=== PATIENT | female | born 1970 | race Caucasian/White ===

== ENCOUNTER 2018-08-06 07:55 | Emergency (ER) | payer BC ==
[2018-08-06] MEDS ORDERED: SODIUM CHLORIDE 0.9% 500 ML IV STA (07:57)
[2018-08-06] MEDS ORDERED: SODIUM CHLORIDE 0.9% 1,000 ML IV STA (07:57)
[2018-08-06 08:03] VITALS: TEMP 97.8
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
--- NOTE | 2018-08-06 08:28 | XR ---
EXAMINATION TYPE: XR chest 2V DATE OF EXAM: 08/06/2018 COMPARISON: None HISTORY: 47-year-old female with cough TECHNIQUE: Frontal and lateral views FINDINGS: The cardiomediastinal silhouette, aorta, and pulmonary vasculature are within normal limits. Lungs an d pleural spaces are clear. IMPRESSION: No acute cardiopulmonary process.
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
[2018-08-06 09:10] LABS: Basophils % (A) 1 %; Eosinophils # (A) 0.3 k/uL (0-0.7); Eosinophils % (A) 4 %; HCT 40.2 % (34.0-46.0); HGB 12.8 gm/dL (11.4-16.0); Lymphocytes % (A) 23 %; MCH 30.4 pg (25.0-35.0); MCHC 31.8 g/dL (31.0-37.0); MCV 95.7 fL (80.0-100.0); Mean Platelet Volume 6.3; Monocytes # (A) 0.3 k/uL (0-1.0); Monocytes % (A) 3 %; Neutrophils # (A) 6.2 k/uL (1.3-7.7); Neutrophils % (A) 69 %; Platelet Count 336 k/uL (150-450); RDW 13.3 % (11.5-15.5); WBC 8.9 k/uL (3.8-10.6)
[2018-08-06 09:14] LABS: ALT 19 U/L (9-52); AST 19 U/L (14-36); Alcohol <10 mg/dL; Alkaline Phosphatase 72 U/L (38-126); Anion Gap 9 mmol/L; Blood Urea Nitrogen 13 mg/dL (7-17); Calcium 9.4 mg/dL (8.4-10.2); Carbon Dioxide 23 mmol/L (22-30); Chloride 110 mmol/L (98-107); Glucose 89 mg/dL (74-99); Magnesium 1.9 mg/dL (1.6-2.3); Potassium 3.9 mmol/L (3.5-5.1); Sodium 142 mmol/L (137-145); Total Bilirubin 0.3 mg/dL (0.2-1.3); Total Protein 6.9 g/dL (6.3-8.2)
[2018-08-06 09:28] LABS: Creatine Kinase 58 U/L (30-135)
[2018-08-06 09:40] LABS: Troponin I <0.012 ng/mL (0.000-0.034)
[2018-08-06 09:54] LABS: Appearance,Urine Clear (Clear); Bilirubin,Urine Negative (Negative); Blood,Urine Negative (Negative); Color,Urine Yellow; Glucose,Urine (UA) Negative (Negative); Ketones,Urine Negative (Negative); Leukocyte Esterase,Urine Negative (Negative); Nitrite,Urine Negative (Negative); Protein,Urine Trace (Negative); Specific Gravity,Urine 1.017 (1.001-1.035); Urobilinogen,Urine <2.0 mg/dL (<2.0)
[2018-08-06 10:04] LABS: Amphetamine Screen,Urine Not Detected (NotDetected); Barbiturate Screen,Urine Not Detected (NotDetected); Benzodiazepines Screen,Urine Not Detected (NotDetected); Cocaine Screen,Urine Not Detected (NotDetected); Methadone Screen, Urine Not Detected (NotDetected); Opiate Screen,Urine Not Detected (NotDetected); Oxycodone Screen, Urine Not Detected (NotDetected); Phencyclidine Screen,Urine Not Detected (NotDetected); Tricyclic Antidepressant,Urine Not Detected (NotDetected); Urn Cannabinoid Scrn Detected (NotDetected)
[2018-08-06 10:46] VITALS: RESP 18
[2018-08-06 11:07] VITALS: BP 101/64; PULSE 54
== END 2018-08-06 11:20 | disposition home or self-care (01) ==
LOC: EC 07:55
DX: R56.9 Unspecified convulsions (principal); R40.2412 Glasgow coma scale score 13-15, at arrival to emergency department; Z91.041 Radiographic dye allergy status
CPT/HCPCS: 36415; 70450; 71046; 80053; 80306; 80320; 81003; 82550; 82553; 83735; 84484; 85025; 85379; 93005; 96360; 96361; 99285

== ENCOUNTER 2019-01-01 12:57 | Emergency (ER) | payer BC ==
[2019-01-01] MEDS ORDERED: ONDANSETRON 4 MG/2 ML VIAL IVP STA (13:49)
[2019-01-01] MEDS ORDERED: SODIUM CHLORIDE 0.9% 1,000 ML IV STA (13:49)
[2019-01-01] MEDS ORDERED: MORPHINE SULFATE 4 MG/ML SYRINGE IV STA (13:49)
[2019-01-01] MEDS ORDERED: SODIUM CHLORIDE 0.9% 1,000 ML IV SCH (14:00)
--- NOTE | 2019-01-01 14:19 | ED ---
Abdominal Pain HPI - General Source: patient, RN notes reviewed, old records reviewed Mode of arrival: ambulatory Limitations: no limitations <Danielle Quinones - Last Filed: 01/01/19 19:21> <Josue Mullins - Last Filed: 01/01/19 19:45> - General Chief Complaint: Abdominal Pain Stated Complaint: vomiting, flank pain Time Seen by Provider: 01/01/19 13:20 - History of Present Illness Initial Comments: Patient is a 48-year-old female presents emergency department today for acute nausea and vomiting and lower back pain. She reports that her kidneys are hurting. Patient states that she had a pacemaker placed 2 weeks ago due to syncopal episodes. She has history of seizures. She has been maintaining her medications. She states that she has lower abdominal cramping and complains of severe abdominal pain. She's had multiple episodes of vomiting. Patient states that she had a pacemaker placed 2 weeks ago Ephraim Pereira. She does complain of some chest pain as well as this time. She reports the chest pain started when she arrived to the emergency department. (Danielle Quinones) - Related Data Home Medications Medication Instructions Recorded Confirmed Magnesium Oxide [Mag-Ox] 250 mg PO Q48H 08/06/18 01/01/19 Lacosamide [Vimpat] 150 mg PO BID 01/01/19 01/01/19 Allergies Allergy/AdvReac Type Severity Reaction Status Date / Time Iodinated Contrast- Oral and Allergy Unknown Verified 01/01/19 14:29 IV Dye Review of Systems ROS Other: All systems not noted in ROS Statement are negative. <Danielle Quinones - Last Filed: 01/01/19 19:21> ROS Other: All systems not noted in ROS Statement are negative. <Josue Mullins - Last Filed: 01/01/19 19:45> ROS Statement: Those systems with pertinent positive or pertinent negative responses have been documented in the HPI. Past Medical History Past Medical History: Seizure Disorder Additional Past Medical History / Comment(s): pacer placed for patt arrythmias History of Any Multi-Drug Resistant Organisms: None Reported Past Surgical History: Orthopedic Surgery, Pacemaker Past Psychological History: No Psychological Hx Reported Smoking Status: Current some day smoker Past Alcohol Use History: None Reported Past Drug Use History: None Reported <Danielle Quinones - Last Filed: 01/01/19 19:21> General Exam Limitations: no limitations General appearance: alert, in no apparent distress Head exam: Present: atraumatic, normocephalic, normal inspection Eye exam: Present: normal appearance, PERRL, EOMI. Absent: scleral icterus, conjunctival injection, periorbital swelling ENT exam: Present: normal exam, mucous membranes moist Neck exam: Present: normal inspection. Absent: tenderness, meningismus, lymphadenopathy Respiratory exam: Present: normal lung sounds bilaterally. Absent: respiratory distress, wheezes, rales, rhonchi, stridor Cardiovascular Exam: Present: regular rate, normal rhythm, normal heart sounds. Absent: systolic murmur, diastolic murmur, rubs, gallop, clicks GI/Abdominal exam: Present: soft, tenderness (epigastric ), normal bowel sounds , other (bilateral CVA ). Absent: distended, guarding, rebound, rigid Extremities exam: Present: normal inspection, full ROM, normal capillary refill. Absent: tenderness, pedal edema, joint swelling, calf tenderness Back exam: Present: normal inspection Neurological exam: Present: alert, oriented X3, CN II-XII intact <Danielle Quinones - Last Filed: 01/01/19 19:21> <Josue Mullins - Last Filed: 01/01/19 19:45> - General Exam Comments Initial Comments: 48-year-old female. Alert and oriented 3. Patient appears in moderate discomfort. (Danielle Quinones) Course <Danielle Quinones - Last Filed: 01/01/19 19:21> <Josue Mullins - Last Filed: 01/01/19 19:45> Vital Signs 01/01/19 01/01/19 01/01/19 13:08 15:15 15:30 Temperature 97.4 F L Pulse Rate 62 60 60 Respiratory 20 18 18 Rate Blood Pressure 158/82 117/82 117/82 O2 Sat by Pulse 98 98 100 Oximetry 01/01/19 01/01/19 01/01/19 16:00 16:30 17:00 Temperature Pulse Rate 76 64 Respiratory 19 17 14 Rate Blood Pressure 132/93 109/71 116/75 O2 Sat by Pulse 96 100 99 Oximetry 01/01/19 17:30 Temperature Pulse Rate 60 Respiratory 18 Rate Blood Pressure 101/68 O2 Sat by Pulse 100 Oximetry - Reevaluation(s) Reevaluation #1: 01/01/19 19:21 Patient was napping. Heart rate was between 30 and 45 bpm. When Patient awoke her heart rate returned to 60-70 bpm. 01/01/19 19:21 (Danielle Quinones) Reevaluation #2: 01/01/19 19:44 PA supervision: I did personally evaluate this case with the physician assistant manager/embalmer. Is questionable pacemaker integrity. Also CAT scan findings of possible lymphoma. Due to the recent pacemaker insertion and questioned the patient will be transferred back to the initiating facility [facility]. I do agree with the assessment and plan. (Josue Mullins) Medical Decision Making - Lab Data Result diagrams: 01/01/19 14:15 01/01/19 14:15 - Radiology Data Radiology results: report reviewed <Danielle Quinones - Last Filed: 01/01/19 19:21> - Lab Data Result diagrams: 01/01/19 14:15 01/01/19 14:15 <Josue Mullins - Last Filed: 01/01/19 19:45> - Medical Decision Making Patient is a 48-year-old female presents emergency Department today with complaints of chest discomfort as well as acute nausea and vomiting and back pain. She arrived to emergency department in significant distress. Patient was given 8 milligrams of IV morphine in total, and IV fluids. Patient was eventually able to urinate and had a significant amount of red blood cells in her urine. Her EKG was completed and shows a ventricular paced rhythm. While Patient was in the emergency department she was sleeping. Her heart rate went to 30 bpm at that time. When Patient was awoken her heart rate increased to the 60 bpm. Patient states that she was feeling much better after the IV fluids and pain medicine. Her computed tomography scan did show some evidence of left ureter and renal pelvis hydronephrosis likely from kidney stone. Patient computed tomography scan also showed enlarged lymph nodes concern for lymphoma. She was informed of all these results. Patient was reevaluated multiple times. When she would sleep, her heart rate would continue to do go into the 30s to 40s. Concerned with patient's recent pacemaker placement that this is malfunctioning. I discussed the case with Dr. Mullins. Patient agrees to be transferred back to [facility] where she had the pacemaker placed by Dr. Rouse. I do believe the patient's kidney stone is now all within the bladder and she is pain-free, resting comfortably in bed. She complains of no pain at 7:35 PM. I discussed the case with accepting ER physician Dr. Burroughs. (Danielle Quinones) - Lab Data Lab Results 01/01/19 01/01/19 01/01/19 Range/Units 14:15 14:15 14:15 WBC 14.7 H (3.8-10.6) k/uL RBC 4.67 (3.80-5.40) m/uL Hgb 14.1 (11.4-16.0) gm/dL Hct 43.0 (34.0-46.0) % MCV 92.1 (80.0-100.0) fL MCH 30.3 (25.0-35.0) pg MCHC 32.9 (31.0-37.0) g/dL RDW 13.6 (11.5-15.5) % Plt Count 393 (150-450) k/uL Neutrophils % 76 % Lymphocytes % 17 % Monocytes % 3 % Eosinophils % 3 % Basophils % 0 % Neutrophils # 11.3 H (1.3-7.7) k/uL Lymphocytes # 2.5 (1.0-4.8) k/uL Monocytes # 0.5 (0-1.0) k/uL Eosinophils # 0.4 (0-0.7) k/uL Basophils # 0.0 (0-0.2) k/uL PT (9.0-12.0) sec INR (<1.2) APTT (22.0-30.0) sec Sodium 138 (137-145) mmol/L Potassium 3.9 (3.5-5.1) mmol/L Chloride 109 H (98-107) mmol/L Carbon Dioxide 20 L (22-30) mmol/L Anion Gap 9 mmol/L BUN 16 (7-17) mg/dL Creatinine 0.69 (0.52-1.04) mg/dL Est GFR (CKD-EPI)AfAm >90 (>60 ml/min/1.73 sqM) Est GFR (CKD-EPI)NonAf >90 (>60 ml/min/1.73 sqM) Glucose 130 H (74-99) mg/dL Lactic Ac Sepsis Rflx Plasma Lactic Acid Bishnu 2.4 H* (0.7-2.0) mmol/L Calcium 9.9 (8.4-10.2) mg/dL Total Bilirubin 0.6 (0.2-1.3) mg/dL AST 19 (14-36) U/L ALT 17 (9-52) U/L Alkaline Phosphatase 97 (38-126) U/L Troponin I (0.000-0.034) ng/mL Total Protein 7.7 (6.3-8.2) g/dL Albumin 4.5 (3.5-5.0) g/dL Amylase 72 (30-110) U/L Lipase 125 (23-300) U/L Urine Color Urine Appearance (Clear) Urine pH (5.0-8.0) Ur Specific [place] (1.001-1.035) Urine Protein (Negative) Urine Glucose (UA) (Negative) Urine Ketones (Negative) Urine Blood (Negative) Urine Nitrite (Negative) Urine Bilirubin (Negative) Urine Urobilinogen (<2.0) mg/dL Ur Leukocyte Esterase (Negative) Urine RBC (0-5) /hpf Urine WBC (0-5) /hpf Urine Bacteria (None) /hpf Urine Mucus (None) /hpf 01/01/19 01/01/19 01/01/19 Range/Units 14:15 14:15 14:57 WBC (3.8-10.6) k/uL RBC (3.80-5.40) m/uL Hgb (11.4-16.0) gm/dL Hct (34.0-46.0) % MCV (80.0-100.0) fL MCH (25.0-35.0) pg MCHC (31.0-37.0) g/dL RDW (11.5-15.5) % Plt Count (150-450) k/uL Neutrophils % % Lymphocytes % % Monocytes % % Eosinophils % % Basophils % % Neutrophils # (1.3-7.7) k/uL Lymphocytes # (1.0-4.8) k/uL Monocytes # (0-1.0) k/uL Eosinophils # (0-0.7) k/uL Basophils # (0-0.2) k/uL PT 10.2 (9.0-12.0) sec INR 0.9 (<1.2) APTT 26.6 (22.0-30.0) sec Sodium (137-145) mmol/L Potassium (3.5-5.1) mmol/L Chloride (98-107) mmol/L Carbon Dioxide (22-30) mmol/L Anion Gap mmol/L BUN (7-17) mg/dL Creatinine (0.52-1.04) mg/dL Est GFR (CKD-EPI)AfAm (>60 ml/min/1.73 sqM) Est GFR (CKD-EPI)NonAf (>60 ml/min/1.73 sqM) Glucose (74-99) mg/dL Lactic Ac Sepsis Rflx Y Plasma Lactic Acid Bishnu (0.7-2.0) mmol/L Calcium (8.4-10.2) mg/dL Total Bilirubin (0.2-1.3) mg/dL AST (14-36) U/L ALT (9-52) U/L Alkaline Phosphatase (38-126) U/L Troponin I <0.012 (0.000-0.034) ng/mL Total Protein (6.3-8.2) g/dL Albumin (3.5-5.0) g/dL Amylase (30-110) U/L Lipase (23-300) U/L Urine Color Urine Appearance (Clear) Urine pH (5.0-8.0) Ur Specific [place] (1.001-1.035) Urine Protein (Negative) Urine Glucose (UA) (Negative) Urine Ketones (Negative) Urine Blood (Negative) Urine Nitrite (Negative) Urine Bilirubin (Negative) Urine Urobilinogen (<2.0) mg/dL Ur Leukocyte Esterase (Negative) Urine RBC (0-5) /hpf Urine WBC (0-5) /hpf Urine Bacteria (None) /hpf Urine Mucus (None) /hpf 01/01/19 01/01/19 Range/Units 17:01 18:37 WBC (3.8-10.6) k/uL RBC (3.80-5.40) m/uL Hgb (11.4-16.0) gm/dL Hct (34.0-46.0) % MCV (80.0-100.0) fL MCH (25.0-35.0) pg MCHC (31.0-37.0) g/dL RDW (11.5-15.5) % Plt Count (150-450) k/uL Neutrophils % % Lymphocytes % % Monocytes % % Eosinophils % % Basophils % % Neutrophils # (1.3-7.7) k/uL Lymphocytes # (1.0-4.8) k/uL Monocytes # (0-1.0) k/uL Eosinophils # (0-0.7) k/uL Basophils # (0-0.2) k/uL PT (9.0-12.0) sec INR (<1.2) APTT (22.0-30.0) sec Sodium (137-145) mmol/L Potassium (3.5-5.1) mmol/L Chloride (98-107) mmol/L Carbon Dioxide (22-30) mmol/L Anion Gap mmol/L BUN (7-17) mg/dL Creatinine (0.52-1.04) mg/dL Est GFR (CKD-EPI)AfAm (>60 ml/min/1.73 sqM) Est GFR (CKD-EPI)NonAf (>60 ml/min/1.73 sqM) Glucose (74-99) mg/dL Lactic Ac Sepsis Rflx Plasma Lactic Acid Bishnu 0.8 (0.7-2.0) mmol/L Calcium (8.4-10.2) mg/dL Total Bilirubin (0.2-1.3) mg/dL AST (14-36) U/L ALT (9-52) U/L Alkaline Phosphatase (38-126) U/L Troponin I (0.000-0.034) ng/mL Total Protein (6.3-8.2) g/dL Albumin (3.5-5.0) g/dL Amylase (30-110) U/L Lipase (23-300) U/L Urine Color Light Red Urine Appearance Cloudy H (Clear) Urine pH 6.0 (5.0-8.0) Ur Specific [place] 1.017 (1.001-1.035) Urine Protein 1+ H (Negative) Urine Glucose (UA) Negative (Negative) Urine Ketones 1+ H (Negative) Urine Blood Moderate H (Negative) Urine Nitrite Negative (Negative) Urine Bilirubin Negative (Negative) Urine Urobilinogen 2.0 (<2.0) mg/dL Ur Leukocyte Esterase Trace H (Negative) Urine RBC 166 H (0-5) /hpf Urine WBC 7 H (0-5) /hpf Urine Bacteria Rare H (None) /hpf Urine Mucus Many H (None) /hpf 01/01/19 14:18 EKG shows atrial paced rhythm with prolonged AV conduction. Inferior infarct age undetermined. Abnormal EKG noted. Ventricular 60 bpm. OR interval is 260 ms. QRS duration 94 ms. QT QTc is 4:30 milliseconds. (Danielle Quinones) - Radiology Data Retroperitoneal adenopathy suspicious for lymphoma follow-up is recommended. Enlargement of the left renal pelvis that could relate to a partial obstruction in left ureteral involvement. Dextroconvex scoliosis and KUB. No evidence of bowel obstruction or free air. Chest x-ray shows suspect underlying COPD. No acute cardio primary process. (Danielle Quinones) Disposition Is patient prescribed a controlled substance at d/c from ED?: No Time of Disposition: 19:36 <Danielle Quinones - Last Filed: 01/01/19 19:21> <Josue Mullins - Last Filed: 01/01/19 19:45> Clinical Impression: Bradycardia, Left ureteral stone, Cardiac pacemaker recipient Disposition: HOME SELF-CARE Condition: Good Referrals: Nonstaff,Physician [Primary Care Provider] - 1-2 days Addendum entered and electronically signed by Danielle Quinones PA-C 01/01/19 19 :37: Addendum to disposition. Patient is transferred to [facility]. Patient is in stable condition.
[2019-01-01 14:33] LABS: Basophils % (A) 0 %; Eosinophils # (A) 0.4 k/uL (0-0.7); Eosinophils % (A) 3 %; HGB 14.1 gm/dL (11.4-16.0); Lymphocytes # (A) 2.5 k/uL (1.0-4.8); Lymphocytes % (A) 17 %; MCH 30.3 pg (25.0-35.0); MCHC 32.9 g/dL (31.0-37.0); MCV 92.1 fL (80.0-100.0); Mean Platelet Volume 6.3; Monocytes # (A) 0.5 k/uL (0-1.0); Monocytes % (A) 3 %; Neutrophils # (A) 11.3 k/uL (1.3-7.7); Neutrophils % (A) 76 %; Platelet Count 393 k/uL (150-450); RBC 4.67 m/uL (3.80-5.40); RDW 13.6 % (11.5-15.5); WBC 14.7 k/uL (3.8-10.6)
[2019-01-01 14:40] LABS: INR 0.9 (<1.2); Partial Thromboplastin Time 26.6 sec (22.0-30.0); Prothrombin Time 10.2 sec (9.0-12.0)
[2019-01-01 14:51] LABS: ALT 17 U/L (9-52); AST 19 U/L (14-36); Albumin 4.5 g/dL (3.5-5.0); Alkaline Phosphatase 97 U/L (38-126); Amylase 72 U/L (30-110); Anion Gap 9 mmol/L; Blood Urea Nitrogen 16 mg/dL (7-17); Calcium 9.9 mg/dL (8.4-10.2); Carbon Dioxide 20 mmol/L (22-30); Chloride 109 mmol/L (98-107); Glucose 130 mg/dL (74-99); Lipase 125 U/L (23-300); Potassium 3.9 mmol/L (3.5-5.1); Sodium 138 mmol/L (137-145); Total Bilirubin 0.6 mg/dL (0.2-1.3); Total Protein 7.7 g/dL (6.3-8.2)
--- NOTE | 2019-01-01 15:00 | XR ---
EXAMINATION TYPE: XR chest 2V DATE OF EXAM: 01/01/2019 COMPARISON: 08/06/2018 HISTORY: 48 year-old female with abdominal pain TECHNIQUE: AP and lateral views FINDINGS: Heart normal size. Aorta and pulmonary vasculature within normal limits. Mild interstitial prominence . Mild hyperinflation. No consolidation or pleural effusion. Left anterior chest wall pacemaker gener ator with right atrial and right ventricular leads. IMPRESSION: Suspect underlying COPD. No acute cardiopulmonary process.
--- NOTE | 2019-01-01 15:01 | XR ---
EXAMINATION TYPE: XR KUB DATE OF EXAM: 01/01/2019 CLINICAL DATA: 48 year-old female with abdominal pain, [facility] COMPARISON: None FINDINGS: Dextroconvex scoliosis of the lumbar spine. No evidence for free intraperitoneal air. Scattered colonic air. No dilated small bowel loops or air-fluid levels. No significant stool burden. No definite suspicious calcification identified IMPRESSION: Dextroconvex scoliosis. No evidence of bowel obstruction or free intraperitoneal air.
[2019-01-01 15:17] VITALS: PULSE 60
[2019-01-01] MEDS ORDERED: KETOROLAC 30 MG/ML 1 ML VIAL IVP STA (15:35)
[2019-01-01] MEDS ORDERED: MORPHINE SULFATE 4 MG/ML SYRINGE IVP STA ×2 (15:38→15:40)
[2019-01-01 17:33] LABS: Appearance,Urine Cloudy (Clear); Bacteria,Urine Rare /hpf; Bilirubin,Urine Negative (Negative); Blood,Urine Moderate (Negative); Color,Urine Light Red; Glucose,Urine (UA) Negative (Negative); Ketones,Urine 1+ (Negative); Leukocyte Esterase,Urine Trace (Negative); Mucus,Urine Many /hpf; Nitrite,Urine Negative (Negative); Protein,Urine 1+ (Negative); RBC,Urine 166 /hpf (0-5); Specific Gravity,Urine 1.017 (1.001-1.035); WBC,Urine 7 /hpf (0-5)
--- NOTE | 2019-01-01 18:33 | CT ---
EXAMINATION TYPE: CT abdomen pelvis wo con DATE OF EXAM: 01/01/2019 COMPARISON: None HISTORY: Epigastric pain and nausea. CT DLP: 354.1 mGycm Automated exposure control for dose reduction was used. TECHNIQUE: Helical acquisition of images was performed from the lung bases through the pelvis. FINDINGS: Lung bases are clear. There is no pleural effusion. Heart size is normal. Liver and spleen appear normal. Bile ducts are not dilated. Stomach appears normal. There is no sign of pancreatic mass. The bile ducts are not dilated. Gallbladder appears normal. There is no adrenal mass. Kidneys have normal size. There is some fullness of the left renal pelvis.. There is extensive bulky retroperitoneal adenopathy. There is a large left side para-aortic lymph no de that measures 5 cm. There is no ascites. Ureters are not dilated. Bladder distends smoothly. Uterus is anteverted. There is no free fluid in the pelvis. There is no inguinal hernia. There is thoracolumbar dextroscoliosis. There is some lateral subluxation of L3 to the right of L4. There is no evidence of a bowel obstructi on. The appendix appears normal. I see no intestinal wall thickening. I see no focal bone destruction . There is no evidence of free air. There is no ascites. IMPRESSION: THERE IS RETROPERITONEAL ADENOPATHY THAT IS SUSPICIOUS FOR LYMPHOMA. FOLLOW-UP IS RECOMMENDED. There is enlargement of left renal pelvis that could relate to partial obstruction and left ureteral involvement.
[2019-01-01 20:01] VITALS: BP 125/80; RESP 14
[2019-01-01 20:41] VITALS: TEMP 97.8
== END 2019-01-01 20:40 | disposition short-term general hospital (02) ==
LOC: EC 12:57
DX: N13.2 Hydronephrosis with renal and ureteral calculous obstruction (principal); R00.1 Bradycardia, unspecified; Z95.0 Presence of cardiac pacemaker; R59.0 Localized enlarged lymph nodes; R94.31 Abnormal electrocardiogram [ECG] [EKG]; M41.86 Other forms of scoliosis, lumbar region; R07.89 Other chest pain; G40.909 Epilepsy, unspecified, not intractable, without status epilepticus; F17.200 Nicotine dependence, unspecified, uncomplicated; Z79.899 Other long term (current) drug therapy; Z86.79 Personal history of other diseases of the circulatory system; Z91.041 Radiographic dye allergy status; Z53.8 Procedure and treatment not carried out for other reasons
CPT/HCPCS: 99285; 96374; 96375 ×2; 96376; 96361; 36415; 93005; 80053; 82150; 83605; 83690; 84484; 85025; 85610; 85730; 81001; 71046; 74018; 74176; J2270; J2405; J1885